=== PATIENT | female | born 1955 | race Caucasian/White ===

== ENCOUNTER 2016-06-15 12:40 | Inpatient (IN) ==
--- NOTE | 2016-06-15 13:36 | Emergency Department Note ---
Disposition Clinical Impression: Elevated troponin Pneumothorax Qualifiers: Pneumothorax type: unspecified pneumothorax Qualified Code(s): J93.9 - Pneumothorax, unspecified Disposition: Admitted As Inpatient General Adult HPI - General Chief complaint: ED Chest Pain Stated complaint: severe head ache and chest pain and back pain Time Seen by Provider: 06/15/16 13:17 Source: patient, family Limitations: no limitations Nursing Notes Reviewed: Yes Vital Signs Reviewed: Yes - History of Present Illness HPI Narrative: Mrs. Gracia, a 61yo female, presents from home by POV with CC: MAYEN and chest pain. Onset over night. CP described as constant, sharp, worse with movement, unrelieved with aspirin or post-op percocet 5/325. MAYEN described as beginning occipital and moving forward to include her entire head. Both headache and chest pain rated 10/10. Denies fever, chills, changes in vision, changes in hearing. No dyspnea, diaphoresis, palpitations, vertigo, jaw pain, arm pain. no pain from surgical sites. PMH: [place] 2013 without stent followed by [place] [facility], [place]. Fib not anticoagulated (unknown timeframe), CVA incidentally found (unknown timeframe). Pain Scale: 10 - Related Data Home Medications Medication Instructions Recorded Confirmed Aspirin 81 mg PO DAILY 06/13/16 06/15/16 Metoprolol [Lopressor] 25 mg PO BID 06/13/16 06/15/16 Previous Rx's Medication Instructions Recorded Docusate [Colace] 100 mg PO BID PRN #30 capsule 06/14/16 Omeprazole [PriLOSEC] 40 mg PO DAILY #0 06/14/16 Ondansetron HCl [Zofran] 4 mg PO Q6H PRN #30 tablet 06/14/16 OxyCODONE/APAP 5/325 [Percocet 1 each PO Q4HR PRN #30 tablet 06/14/16 5/325 MG] Allergies Allergy/AdvReac Type Severity Reaction Status Date / Time fish oil Allergy sore Verified 06/13/16 11:41 throat, headache, rash, vomiting sulfamethoxazole Allergy Anaphylaxis Verified 06/13/16 11:41 [From Bactrim] trimethoprim [From Bactrim] Allergy Anaphylaxis Verified 06/13/16 11:41 egg AdvReac See Verified 06/13/16 11:41 Comments gabapentin AdvReac Gastrointestinal Verified 06/13/16 11:41 Upset All systems ED: reviewed and negative except as stated. Constitutional: Denies: fever, chills, weakness Eyes: Reports: eye pain ENT ED: Denies: ear pain, throat pain Cardiovascular: Reports: chest pain. Denies: palpitations, dyspnea on exertion , edema, syncope Respiratory: Reports: cough. Denies: dyspnea, wheezes, hemoptysis, sputum production Gastrointestinal: Reports: nausea. Denies: abdominal pain, vomiting, diarrhea, constipation, hematemesis, melena, hematochezia Genitourinary: Denies: dysuria Musculoskeletal: Reports: back pain, neck pain Integumentary: Reports: lesions (surgical sites). Denies: rash, abrasion Neurological: Reports: headache. Denies: weakness, numbness, paresthesias, confusion, vertigo Past Medical History - Past Medical History Medical history: Reports: atrial fibrillation, cardiomyopathy, CVA, hypertension Psychiatric history: Reports: depression - Social History Smoking Status: Never smoker Smokeless Tobacco Status: No Alcohol use: Reports: none Drug use: Reports: none Physical Exam General: Patient is alert, oriented, and in no acute respiratory distress. She is grimacing holding her head. HEENT: No facial asymmetry. Head is normocephalic and atraumatic. PERRLA, EOMI. Oral mucosa dry. Trachea midline. Paraspinal soft tissues tender and taut. Cardiovascular: Heart regular rate and rhythm without clicks, rubs, gallops, or murmurs. No JVD. PMI nondisplaced. Respiratory: Symmetric chest rise with good respiratory effort. Bilateral breath sounds are clear without wheezing, crackles, or rhonchi. Mildly diminished in right mid and left base. Pain to palpation along 2nd left rib. Abdomen: Bowel sounds present normoactive x-4 quadrants. Abdomen is soft, nondistended, and nontender. Surgical sites well dressed and clean. Neuro: Cranial nerves II through XII without deficit. Sensation light touch intact. Psych: Patient's affect is appropriate for situation. - General Limitations: no limitations General appearance: alert Course Course Narrative: 2V chest x-ray to re-evaluate previous post-op pneumothorax. Will IV rehydrate. Will draw basic labs, troponin, EKG. WELLS score 1.5 giving low risk of PE. Her only (+) was recent surgery. Clinically, her chest pain is reproducible with posterior and anterior motion of left 2nd rib. Her headache is temporatily relieved with suboccipotal inhibition. Clinically suspect msk pain of 2nd left rib with tension headache, however will rule out cardiac pathology given her cardiac history and recent operation. Patient's chest x-ray is concerning for worsening pneumothorax. Additionally, she has elevation of troponin-given the pattern of her chest pain radiating to her back there is concern for AAA. We will CTA chest, abdomen, pelvis to assess both pneumothorax and for AAA. 15:[address] Vera - CT today vs CT Jun 14 2016 shows improvement in pneumothorax. Never had a lung injury - this is insuffilation from surgery. Patient also has basilar fluid. He will stop by to evaluate her. Vital Signs Temperature 98.7 F 06/15/16 12:45 Pulse Rate 84 06/15/16 12:45 Respiratory Rate 16 06/15/16 12:45 Blood Pressure 120/80 06/15/16 12:45 O2 Sat by Pulse Oximetry 97 06/15/16 12:45 Temperature 98.7 F 06/15/16 12:45 Pulse Rate 90 06/15/16 15:32 Respiratory Rate 18 06/15/16 17:07 Blood Pressure 150/88 06/15/16 17:07 O2 Sat by Pulse Oximetry 98 06/15/16 15:32 Oxygen Delivery Oxygen Delivery Room Air Medical Decision Making - Medical Records Medical records reviewed: Yes I reviewed the patient's medical records. - Lab Data Lab results reviewed: Yes I reviewed the patient's lab results. Result diagrams: 06/15/16 13:20 06/15/16 13:20 Lab Results 06/15/16 06/15/16 06/15/16 Range/Units 13:20 13:20 13:20 WBC 7.9 (4.3-11.1) K/mcL RBC 3.87 (3.82-4.97) M/mcL Hgb 11.9 (11.5-15.4) g/dL Hct 36.2 (35.3-44.9) % MCV 93.5 (83.0-100.0) fL MCH 30.7 (28.0-33.3) pg MCHC 32.9 (31.6-35.5) g/dL RDW 12.4 (11.5-14.5) % Plt Count 195 (140-400) K/mcL MPV 10.8 (9.4-12.4) fL Immature Gran % 0.4 (0-4) % Seg Neutrophils % 81.9 % Lymphocytes % 10.1 % Monocytes % 6.1 % Eosinophils % 1.1 % Basophils % 0.4 % Neutrophils # 6.5 (1.6-8.9) K/mcL Lymphocytes # 0.8 (0.6-4.6) K/mcL Monocytes # 0.5 (0.0-1.3) K/mcL Eosinophils # 0.1 (0.0-0.6) K/mcL Basophils # 0.0 (0.0-0.2) K/mcL Immature Plt Fraction 4.2 (1.1-6.1) % Sodium 138 (136-145) mEq/L Potassium 3.4 L (3.5-4.5) mEq/L Chloride 107 (98-109) mEq/L Carbon Dioxide 24 (19-29) mEq/L BUN 8 (7-20) mg/dL Creatinine 0.73 (0.57-1.11) mg/dL Est GFR ( Amer) > 60 (> 60) Est GFR (Non-Af Amer) > 60 (> 60) BUN/Creatinine Ratio 11 (6-26) Glucose 95 (70-99) mg/dL Calculated Osmolality 284 (280-300) Calcium 8.6 (8.6-10.8) mg/dL Troponin I 0.07 H* (0-0.03) ng/mL - Radiology Data Radiology results reviewed: Yes I reviewed the patient's radiology results. - EKG Data EKG #1 EKG attestation: Yes I reviewed and interpreted this EKG. EKG results narrative: EKG dated 06/15/16 at 1257 read as sinus rhythm with a rate of 82. Normal intervals. Left axis. T-wave inversion in leads 3, V1, V2, V3. Nonspecific ST -T changes. Compared to previous EKG dated 06/14/2016 at 00:45 shows no acute ischemic changes; T-wave inversion present in the same leads. Attestation Statement - Attestation Attestation: I examined this patient and my medical decision-making was reviewed with the LABORER/PA/Advanced Practice Nurse/Resident Physician. I agree with the documented findings, disposition and treatment plan as described except to the extent set forth below. Patient presents to the emergency department wanting a chest pressure. Patient states she woke up during the night with pain in her chest radiating to her back. Patient is status post Lucius fundoplication 2 days ago. She got a small pneumothorax postop required no intervention. On exam she is in no distress. She has symmetric breath sounds. Vital signs stable except for a pulse ox of 91%. Plan. The patient is a worsening pneumothorax on her chest x- ray. Troponin is elevated. We will get a CT chest to rule out dissection and to quantitate her pneumothorax. Likely admit.I
[2016-06-15] MEDS ORDERED: 0.9 % Sodium Chloride 1,000 ML IVC ONE (13:41)
[2016-06-15] MEDS ORDERED: Metoclopramide 10 MG/2 ML VIAL IVP ONE (13:42)
[2016-06-15] MEDS ORDERED: Ketorolac 30 MG/ML VIAL IVP ONE (13:42)
[2016-06-15 13:48] LABS: Basophils % 0.4 %; Eosinophils # 0.1 K/mcL (0.0-0.6); Eosinophils % 1.1 %; Hematocrit 36.2 % (35.3-44.9); Hemoglobin 11.9 g/dL (11.5-15.4); Immature Granulocytes % 0.4 % (0-4); Immature Platelets 4.2 % (1.1-6.1); Lymphocytes # 0.8 K/mcL (0.6-4.6); Lymphocytes % 10.1 %; Mean Corpuscular HGB Conc 32.9 g/dL (31.6-35.5); Mean Corpuscular Hemoglobin 30.7 pg (28.0-33.3); Mean Corpuscular Volume 93.5 fL (83.0-100.0); Mean Platelet Volume 10.8 fL (9.4-12.4); Monocytes # 0.5 K/mcL (0.0-1.3); Monocytes % 6.1 %; Neutrophils # 6.5 K/mcL (1.6-8.9); Platelet Count 195 K/mcL (140-400); Red Blood Count 3.87 M/mcL (3.82-4.97); Red Cell Distribution Width 12.4 % (11.5-14.5); Segmented Neutrophils % 81.9 %
[2016-06-15 14:18] LABS: BUN/Creatinine Ratio 11 (6-26); Blood Urea Nitrogen 8 mg/dL (7-20); Calcium 8.6 mg/dL (8.6-10.8); Carbon Dioxide 24 mEq/L (19-29); Chloride 107 mEq/L (98-109); Glucose 95 mg/dL (70-99); Osmolality,Calculated 284 (280-300); Potassium 3.4 mEq/L (3.5-4.5); Sodium 138 mEq/L (136-145); eGFR For African Americans > 60 (> 60); eGFR For Non-African Americans > 60 (> 60)
[2016-06-15] MEDS ORDERED: Naloxone 0.4 MG/ML INJ IVP PRN (16:04)
[2016-06-15] MEDS ORDERED: Ondansetron 4 MG/2 ML VIAL IVP PRN (16:04)
[2016-06-15] MEDS ORDERED: *HR* HYDROmorphone (PF) 1 MG/ML SYRINGE IVP PRN (16:13)
[2016-06-15] MEDS ORDERED: 0.9 % Sodium Chloride 1,000 ML IVC SCH (16:15)
[2016-06-15] MEDS ORDERED: Ketorolac 15 MG/ML VIAL IVP PRN (16:20)
--- NOTE | 2016-06-15 16:53 | General Surg History&Physical ---
<Tonny Barry - Last Filed: 06/15/16 17:57> Date of Encounter: 06/15/16 Time of Encounter: 16:00 Assessment and Plan (1) Status post Lucius fundoplication Current Visit: Yes Status: Acute POD# 2 s/p lucius fundoplication by Dr. Vera. Continue pain management. (2) Chest pain Current Visit: Yes Status: Acute Atypical chest pain, as there are no precipitating or extinguishing factors. Likely secondary to insuffilation s/p lucius fundopilcation on 06/13/16 Elevated troponin at 0.07, hipolito continue to trend. Hospitalist consulted to manage. Received ASA in the ED, will continue daily. No acute EKG changes. Noted to have both pneumothoraces and fluid on CT. Consider thoracentesis, if so will consult IR tomorrow. Continue pain management. Qualifiers: Chest pain type: unspecified Qualified Code(s): R07.9 - Chest pain, unspecified (3) Acute respiratory disease Current Visit: Yes Status: Acute Acute respiratory failure with hypoxia, likely secondary to insufflation s/p lucius fundoplication on 06/13/16. Family notes oxygen saturation in the 80s on presentation, currently 98% on [address] today vs CT Jun 14 2016 shows improvement in pneumothorax. Noted basilar fluid. Continue supplemental oxygen. Continue to monitor overnight Incentive spirometry. No chest tube warranted at this time, consider thoracentesis for effusions. (4) Elevated troponin Current Visit: Yes Status: Acute Likely secondary to demand ischemia secondary to acute respiratory distress vs recent surgery/lucius on 06/13/16. Initial troponin 0.07, no previous to compare. Ordered trending troponins. Consulted hospitalist for management. (5) Headache Current Visit: Yes Status: Acute Improving. Denies history of headaches. Starting IV fluids Toradol prn. Qualifiers: Headache type: tension-type Headache chronicity pattern: acute headache Intractability: not intractable Qualified Code(s): G44.209 - Tension-type headache, unspecified, not intractable (6) GERD (gastroesophageal reflux disease) Current Visit: No Status: Chronic Protonix 40mg IV daily. Qualifiers: Esophagitis presence: esophagitis presence not specified Qualified Code(s) : K21.9 - Gastro-esophageal reflux disease without esophagitis (7) DVT prophylaxis Current Visit: Yes Status: Acute Heparin 5,000 SQ BID. History of Present Illness Chief complaint: chest pain HPI: Ms. Gracia is a 61 year old female presents to the ED for chest pain, s/p lucius fundoplication on 06/13/[address] Vera. Patient states the pain began overnight, describing the discomfort as constant, sharp pain that worsens with movement and radiating through to her back. At its worst a 10/10 in severity, currently improved with pain medication and supplemental oxygen. She also notes having a headache currently, worse at the base of her skull. Denies history of headaches. Family states patient appeared short of breath and confused at home. Patient states she feels "foggy". Son notes patient to have had a saturation in the 80s on arrival. Lowest I see is 91% documented. Currently doing well on 2L. Patient admits to chills, but no documented fevers. Of note, patient had similar chest pain status post surgery on 06/13/[address] of the chest. There were concerns for a small to moderate sized left hydropneumothorax at that time. She had a f/u UGI examination which showed no evidence of a leak. The patient's chest pain had resolved; f/u chest x-ray showed a small residual apical pneumothorax. This was reviewed with Dr. Vera , that the defect was likely related to the nature of the surgery without injury to the lung. The patient tolerated liquids without nausea/vomiting/ reflux. Her vital signs were stable and she was afebrile. Past Med Surg Social Fam HX - Past Medical History Medical history: atrial fibrillation, cardiomyopathy, CVA, hypertension Psychiatric history: depression - Past Surgical History Surgical History: cholecystectomy - Social History Smoking Status: Never smoker Smokeless Tobacco Status: No Alcohol use: none Drug use: none - Family History Father Living Status: Cause of : CVA Mother Living Status: Hx Family Cardiac Disorders: Yes (heart disease) Hx Family Endocrine Disorder: Yes (DM) Medications and Allergies Aspirin 81 mg PO DAILY 06/13/16 [History] Metoprolol [Lopressor] 25 mg PO BID 06/13/16 [History] Docusate [Colace] 100 mg PO BID PRN #30 capsule 06/14/16 [Rx] Omeprazole [PriLOSEC] 40 mg PO DAILY #0 06/14/16 [Rx] Ondansetron HCl [Zofran] 4 mg PO Q6H PRN #30 tablet 06/14/16 [Rx] OxyCODONE/APAP 5/325 [Percocet 5/325 MG] 1 each PO Q4HR PRN #30 tablet 06/14/16 [Rx] Allergies fish oil Allergy (Verified 06/13/16 11:41) sore throat, headache, rash, vomiting sulfamethoxazole [From Bactrim] Allergy (Verified 06/13/16 11:41) Anaphylaxis trimethoprim [From Bactrim] Allergy (Verified 06/13/16 11:41) Anaphylaxis egg Adverse Reaction (Verified 06/13/16 11:41) See Comments headache, sore throat gabapentin Adverse Reaction (Verified 06/13/16 11:41) Gastrointestinal Upset Review of Systems All systems PM: A 10-system review of systems was performed and is negative for pertinent findings except as documented above in the HPI. - Constitutional chills, fatigue, headache(s), weakness - EENT Nose, mouth and throat: neck pain, no dysphagia - Cardiovascular chest pain, dyspnea, no palpitations, no syncope - Respiratory dyspnea on exertion - Gastrointestinal no abdominal pain, no dysphagia, no nausea, no vomiting - Genitourinary Genitourinary: no dysuria, no flank pain - Musculoskeletal back pain, neck pain - Integumentary other (incision sites) - Neurological headache(s), no memory loss General Surgery Exam Initial Vital Signs Temp Pulse Resp BP Pulse Ox 98.7 F 84 16 120/80 97 06/15/16 12:45 06/15/16 12:45 06/15/16 12:45 06/15/16 12:45 06/15/16 12:45 - General physical appearance well developed, well nourished, no distress, obese - Eyes normal ocular movement - ENT normal mucosa, atraumatic, normocephalic - Neck trachea midline - Respiratory normal respiratory effort, clear to auscultation - Cardiovascular Cardiovascular exam: Present: RRR, 15, 16 - Abdomen Abdomen general surgery: Present: bowel sounds present, soft, non tender - Integumentary Integumentary general surgery: Present: warm and dry, no abnormal pigmentation - Neurologic Present: CN 2-12 grossly intact. Absent: combative, disoriented - Psychiatric Psychiatric general surgery: Present: appropriate, oriented to person, oriented to place, oriented to time, speech is normal, memory intact Results - Labs 06/15/16 13:20 06/15/16 13:20 Abnormal lab results Potassium 3.4 mEq/L (3.5-4.5) L 06/15/16 13:20 Troponin I 0.07 ng/mL (0-0.03) H* 06/15/16 13:20 All other labs normal. <Mor Vera M - Last Filed: 06/15/16 19:20> Date of Encounter: 06/15/16 History of Present Illness HPI: Ms. Gracia is a 61 year old female Review of Systems All systems PM: A 10-system review of systems was performed and is negative for pertinent findings except as documented above in the HPI. General Surgery Exam Initial Vital Signs Temp Pulse Resp BP Pulse Ox 98.7 F 84 16 120/80 97 06/15/16 12:45 06/15/16 12:45 06/15/16 12:45 06/15/16 12:45 06/15/16 12:45 Results - Labs 06/15/16 13:20 06/15/16 13:20 Abnormal lab results Potassium 3.4 mEq/L (3.5-4.5) L 06/15/16 13:20 Troponin I 0.07 ng/mL (0-0.03) H* 06/15/16 13:20 All other labs normal. - Attending Attestation I examined this patient and my medical decision-making was reviewed with the HUMAN PROJECTILE/PA/Advanced Practice Nurse/Resident Physician. I agree with the documented findings, disposition and treatment plan as described except to the extent set forth below. I reviewed the above assessment and evaluation. I personally reviewed the patient's CT scan images and was able to compare it to the previous CT from 06/14. I appears that the pneumothorax on the left has decreased . There are bilateral pleural effusions present. Normal WBCs. Agree with NPO and supplemental O2/incentive spirometer. Hospitalist consultation for mildly elevated troponin and symptoms of chest pain (still most likely secondary to the surgery). Follow with CXR in am.
--- NOTE | 2016-06-15 18:20 | Internal Medicine Consult Note ---
Date of Encounter: 06/15/16 Time of Encounter: 18:17 Internal Medicine - CN: HPI - Data of Consult Patient: new to practice Consult date: 06/15/16 Requesting Physician: Mor Vera MD - Consult Narrative Reason for consult: Elevated troponin History of present illness: Ms. Gracia is a 61 year old female with a past medical history of hiatal hernia and GERD who underwent a recent Niesen fundoplication performed by Dr. Vera. The patient was discharged yesterday from the hospital and ealry this morning at approximately 2 AM started complaining of severe sharp chest pain mainly on the left side. On the CT scan of the chest no pulmonary emboli was found but it showed left moderate sized hydropneumothorax that apparently has improved from the prior study also trace right hydropneumothorax, some pancreatic edema versus possible pancreatitis and a left lower lobe consolidation. Patient is not complaining of any phlegm coming up. Describes the pain as pressure-like that is worse when she moves around or she breathes in , likely pleuritic. Her troponin was 0.07 but denies any diaphoresis, mild shortness of breath, the patient is not improved with aspirin or Percocet but improved with some Toradol was given at the ER. Potassium is 3.4, blood pressure is 150/88. She denies any other complaint. Review of systems: Denies any abdominal pain, no dysuria, other systems out of the 10 reviewed were negative Past Med Surg Social Fam HX - Past Medical History Medical history: atrial fibrillation (No anticoagulation), cardiomyopathy, CVA, hypertension, other (PFO, CAD, hiatal hernia, GERD, sarcoidosis, vertigo, asthma , depression, esophagitis grade C) Psychiatric history: depression - Past Surgical History Surgical History: cholecystectomy, other (Cardiac catheterization in 2010 with no stents, tubal ligation, tonsillectomy, cholecystitis, echocardiogram with an ejection fraction of 55% diastolic dysfunction and a PFO with a right to left shunt) - Social History Smoking Status: Never smoker Smokeless Tobacco Status: No Alcohol use: none Drug use: none - Family History Father Living Status: Cause of : CVA Mother Living Status: Hx Family Cardiac Disorders: Yes (heart disease) Hx Family Endocrine Disorder: Yes (DM) - Additional Family History Additional family history: Father with CVA and mother with diabetes and heart disease Internal Medicine - CN: Meds Aspirin 81 mg PO DAILY 06/13/16 [History] Metoprolol [Lopressor] 25 mg PO BID 06/13/16 [History] Docusate [Colace] 100 mg PO BID PRN #30 capsule 06/14/16 [Rx] Omeprazole [PriLOSEC] 40 mg PO DAILY #0 06/14/16 [Rx] Ondansetron HCl [Zofran] 4 mg PO Q6H PRN #30 tablet 06/14/16 [Rx] OxyCODONE/APAP 5/325 [Percocet 5/325 MG] 1 each PO Q4HR PRN #30 tablet 06/14/16 [Rx] Allergies fish oil Allergy (Verified 06/13/16 11:41) sore throat, headache, rash, vomiting sulfamethoxazole [From Bactrim] Allergy (Verified 06/13/16 11:41) Anaphylaxis trimethoprim [From Bactrim] Allergy (Verified 06/13/16 11:41) Anaphylaxis egg Adverse Reaction (Verified 06/13/16 11:41) See Comments headache, sore throat gabapentin Adverse Reaction (Verified 06/13/16 11:41) Gastrointestinal Upset Internal Medicine - CN: Exam - Constitutional Vitals: Temp Pulse Resp BP Pulse Ox 99.2 F 81 16 121/78 96 06/15/16 18:09 06/15/16 18:09 06/15/16 18:09 06/15/16 18:09 06/15/16 18:09 General appearance IM: Present: A&O X 3 - Head Head exam: Present: atraumatic, normal inspection - Expanded Head Exam Head exam expanded IM: Absent: abrasion, Washington's sign, contusion - Eye Eye exam: Present: EOMI, normal appearance. Absent: conjunctival injection, nystagmus - Neck Neck exam general surgery: Present: full ROM - Respiratory Respiratory exam: Present: decreased breath sounds (Decreased breath sounds on the right). Absent: rales, wheezes - GI/Abdominal GI/Abdominal exam IM: Present: distended. Absent: bruit, rebound, tenderness Additional comments: 5 port wounds with no signs of infection showing small ecchymoses - Rectal Rectal exam: Present: deferred - Extremities Exam Extremities exam IM: Present: full ROM. Absent: calf tenderness, cyanotic, joint swelling, pedal edema, tenderness - Expanded Lower Extremities Exam Neuro vascular tendon exam: Absent: foot drop - Neurological Exam Neurological exam: Present: CN II-XII intact, oriented X3. Absent: altered - Skin Skin exam IM: Absent: abrasion Internal Medicine - CN: Reslt - Labs CBC & Chem 7: 06/15/16 13:20 06/15/16 13:20 - Assessment and Plan (1) Elevated troponin Current Visit: Yes Status: Acute Assessment and plan: Elevated troponin likely secondary to demand ischemia EKG shows T-wave inversions in the septal anterior leads without any change May continue with aspirin, beta dale Telemetry, consider cardiology consult if worse Follow troponins Order nitroglycerin as needed, check lipid panel (2) Hydropneumothorax Current Visit: Yes Status: Acute Assessment and plan: Left more than right Followed by surgery (3) PFO (patent foramen ovale) Current Visit: Yes Status: Acute Assessment and plan: Stable (4) A-fib Current Visit: Yes Status: Acute Qualifiers: Atrial fibrillation type: paroxysmal Qualified Code(s): I48.0 - Paroxysmal atrial fibrillation (5) Status post Lucius fundoplication Current Visit: Yes Status: Acute (6) GERD (gastroesophageal reflux disease) Current Visit: No Status: Chronic Assessment and plan: Continue PPI Sequential compression devices for DVT prophylaxis. Thank you for allowing me to participate in the care of this patient. Time spent on this consult 40 minutes. Please call with any questions Qualifiers: Esophagitis presence: esophagitis presence not specified Qualified Code(s) : K21.9 - Gastro-esophageal reflux disease without esophagitis Consult Discharge Plan - Plan Referrals: Jesus Willett, SENIOR SYSTEMS DEVELOPER [Primary Care Provider] -
[2016-06-15] MEDS ORDERED: Nitroglycerin 0.4 MG TAB.SUBL SL PRN (18:26)
[2016-06-15] MEDS: *HR* Metoprolol 5 MG/5 ML VIAL IVP SCH (18:35)
[2016-06-15] MEDS: *HR* Heparin 5,000 UNIT/ML VIAL SQ SCH (21:13)
[2016-06-16] MEDS: *HR* Metoprolol 5 MG/5 ML VIAL IVP SCH ×4 (00:02→17:54)
[2016-06-16 02:20] LABS: Basophils % 0.6 %; Eosinophils # 0.2 K/mcL (0.0-0.6); Eosinophils % 2.6 %; Hematocrit 32.9 % (35.3-44.9); Hemoglobin 10.6 g/dL (11.5-15.4); Immature Granulocytes % 0.4 % (0-4); Lymphocytes % 14.3 %; Mean Corpuscular HGB Conc 32.2 g/dL (31.6-35.5); Mean Corpuscular Hemoglobin 30.8 pg (28.0-33.3); Mean Corpuscular Volume 95.6 fL (83.0-100.0); Mean Platelet Volume 11.3 fL (9.4-12.4); Monocytes # 0.4 K/mcL (0.0-1.3); Monocytes % 5.8 %; Neutrophils # 5.3 K/mcL (1.6-8.9); Platelet Count 160 K/mcL (140-400); Red Blood Count 3.44 M/mcL (3.82-4.97); Red Cell Distribution Width 12.3 % (11.5-14.5); Segmented Neutrophils % 76.3 %
[2016-06-16 02:28] LABS: BUN/Creatinine Ratio 10 (6-26); Blood Urea Nitrogen 7 mg/dL (7-20); Calcium 8.3 mg/dL (8.6-10.8); Carbon Dioxide 26 mEq/L (19-29); Chloride 110 mEq/L (98-109); Glucose 83 mg/dL (70-99); Osmolality,Calculated 289 (280-300); Potassium 3.4 mEq/L (3.5-4.5); Sodium 141 mEq/L (136-145); eGFR For African Americans > 60 (> 60); eGFR For Non-African Americans > 60 (> 60)
[2016-06-16] MEDS: Aspirin 81 MG TAB.CHEW PO SCH (09:46)
[2016-06-16] MEDS: *HR* Heparin 5,000 UNIT/ML VIAL SQ SCH ×2 (09:46→20:25)
--- NOTE | 2016-06-16 10:00 | General Surgery Progress Note ---
<OceanaAditi Pily - Last Filed: 06/16/16 10:11> Date of Encounter: 06/16/16 Time of Encounter: 09:45 - Assessment and Plan (1) Status post Lucius fundoplication Current Visit: Yes Status: Acute POD #[address] Vera Resume clear liquids today w/o carbonation IV fluids- decrease to 50ml/hour with start of clears Supportive care/pain control Increase activity as tolerated- ambulate with assistance (2) Chest pain Current Visit: Yes Status: Acute Improved today Atypical chest pain, as there are no precipitating or extinguishing factors. Likely secondary to insuffilation s/p lucius fundopilcation on 06/13/16 Troponin has trended down to 0.04 Continue asa, beta dale and statin No acute EKG changes. Noted to have pneumothoraces and fluid on CT- improved since initial CT Qualifiers: Chest pain type: unspecified Qualified Code(s): R07.9 - Chest pain, unspecified (3) Elevated troponin Current Visit: Yes Status: Acute Hospitalist consulted for recommendations Opinion was that this was related to demand ischemia from the surgery and hypoxia 0.08>0.05>0.04 Continue asa, beta dale, statin (4) Pleural effusion Current Visit: Yes Status: Acute Will continue to monitor No intervention at this time Incentive Spirometer every 1 hours while awake (5) Headache Current Visit: Yes Status: Acute Improved Toradol prn for recurrent headache Qualifiers: Headache type: tension-type Headache chronicity pattern: acute headache Intractability: not intractable Qualified Code(s): G44.209 - Tension-type headache, unspecified, not intractable (6) Hydropneumothorax Current Visit: Yes Status: Acute Improved since initial CT Continue to monitor and treat with conservative measures No intervention at this time (7) Hypokalemia Current Visit: Yes Status: Acute Replace potassium today (8) DVT prophylaxis Current Visit: Yes Status: Acute Continue heparin 5,000 units SQ twice daily for DVT prophylaxis Subjective Patient reports: feels better, still having pain (chest with deep breathing), pain is less, voiding w/o difficulty, flatus, afebrile (Tmax 99.8) Objective Vital Signs - Last 8 Hours Temp Pulse Resp BP Pulse Ox 06/16/16 07:16 98.9 F 96 14 123/77 95 06/16/16 05:31 99 140/89 06/16/16 03:36 99.8 F H 96 17 154/84 93 L Intake and Output 06/15/16 06/16/16 06/16/16 23:59 07:59 15:59 Intake Total 1000 / 1000 60 / 60 Output Total 450 / 450 Balance 1000 / 1000 -390 / -390 Intake: IV Fluids 1000 / 1000 0.9 % Sodium Chloride 1, 1000 / 1000 000 ML @ 1875 mls/hr IVC .Q32M ONE Rx#:[id number] Oral 60 / 60 Output: Urine 450 / 450 Other: Weight 106.776 kg Blood Glucose* 78 - General physical appearance well developed, well nourished, no distress - Eyes normal ocular movement - ENT dry mucosa, atraumatic, normocephalic - Neck Neck exam: trachea midline - Respiratory normal respiratory effort, clear to auscultation, other (diminished bibasilar bases; oxygen saturation 95% on 2L per nasal cannula) - Cardiovascular Cardiovascular exam: Present: RRR - Abdomen Abdomen: Present: bowel sounds present, soft, tender (minimal, expected post- operative tenderness) - Incision Incision: Present: clean and dry, intact - Neurologic CN 2-12 grossly intact - Psychiatric oriented to time, oriented to person, oriented to place, speech is normal, memory intact - Labs 06/16/16 01:15 06/16/16 01:15 Diabetes panel 06/16/16 Range/Units 01:15 Sodium 141 (136-145) mEq/L Potassium 3.4 L (3.5-4.5) mEq/L Chloride 110 H (98-109) mEq/L Carbon Dioxide 26 (19-29) mEq/L BUN 7 (7-20) mg/dL Creatinine 0.67 (0.57-1.11) mg/dL Glucose 83 (70-99) mg/dL Calcium 8.3 L (8.6-10.8) mg/dL Calcium panel 06/16/16 Range/Units 01:15 Calcium 8.3 L (8.6-10.8) mg/dL Pituitary panel 06/16/16 Range/Units 01:15 Sodium 141 (136-145) mEq/L Potassium 3.4 L (3.5-4.5) mEq/L Chloride 110 H (98-109) mEq/L Carbon Dioxide 26 (19-29) mEq/L BUN 7 (7-20) mg/dL Creatinine 0.67 (0.57-1.11) mg/dL Glucose 83 (70-99) mg/dL Calcium 8.3 L (8.6-10.8) mg/dL Adrenal panel 06/16/16 Range/Units 01:15 Sodium 141 (136-145) mEq/L Potassium 3.4 L (3.5-4.5) mEq/L Chloride 110 H (98-109) mEq/L Carbon Dioxide 26 (19-29) mEq/L BUN 7 (7-20) mg/dL Creatinine 0.67 (0.57-1.11) mg/dL Glucose 83 (70-99) mg/dL Calcium 8.3 L (8.6-10.8) mg/dL Consult Discharge Plan - Plan Referrals: Jesus Willett CNP [Primary Care Provider] - 07/18/16 1:00 pm Aditi Bobby CNP [Advanced Practice Nurse] - 06/26/16 9:30 am Soledad Louie MD [Partnered Physician] - 07/13/16 10:10 am - Attending Attestation I examined this patient and my medical decision-making was reviewed with the ROD PILER/PA/Advanced Practice Nurse/Resident Physician. I agree with the documented findings, disposition and treatment plan as described except to the extent set forth below. <Mor Vera - Last Filed: 06/16/16 17:10> Date of Encounter: 06/16/16 Objective Vital Signs - Last 8 Hours Temp Pulse Resp BP Pulse Ox 06/16/16 15:32 97.8 F 86 14 141/83 94 L 06/16/16 10:51 98.5 F 106 16 154/85 97 Intake and Output 06/16/16 06/16/16 06/16/16 07:59 15:59 23:59 Intake Total 60 / 60 1240 / 1240 Output Total 450 / 450 Balance -390 / -390 1240 / 1240 Intake: IV Fluids 1000 / 1000 0.9 % Sodium Chloride 1, 1000 / 1000 000 ML @ 75 mls/hr IVC . [id number] AZEEM Rx#: [id number] Oral 60 / 60 240 / 240 Output: Urine 450 / 450 Other: Meal NPO Blood Glucose* 78 103 - Labs 06/16/16 01:15 06/16/16 01:15 Diabetes panel 06/16/16 Range/Units 01:15 Sodium 141 (136-145) mEq/L Potassium 3.4 L (3.5-4.5) mEq/L Chloride 110 H (98-109) mEq/L Carbon Dioxide 26 (19-29) mEq/L BUN 7 (7-20) mg/dL Creatinine 0.67 (0.57-1.11) mg/dL Glucose 83 (70-99) mg/dL Calcium 8.3 L (8.6-10.8) mg/dL Calcium panel 06/16/16 Range/Units 01:15 Calcium 8.3 L (8.6-10.8) mg/dL Pituitary panel 06/16/16 Range/Units 01:15 Sodium 141 (136-145) mEq/L Potassium 3.4 L (3.5-4.5) mEq/L Chloride 110 H (98-109) mEq/L Carbon Dioxide 26 (19-29) mEq/L BUN 7 (7-20) mg/dL Creatinine 0.67 (0.57-1.11) mg/dL Glucose 83 (70-99) mg/dL Calcium 8.3 L (8.6-10.8) mg/dL Adrenal panel 06/16/16 Range/Units 01:15 Sodium 141 (136-145) mEq/L Potassium 3.4 L (3.5-4.5) mEq/L Chloride 110 H (98-109) mEq/L Carbon Dioxide 26 (19-29) mEq/L BUN 7 (7-20) mg/dL Creatinine 0.67 (0.57-1.11) mg/dL Glucose 83 (70-99) mg/dL Calcium 8.3 L (8.6-10.8) mg/dL - Attending Attestation I reviewed the above and agree with the above assessment and plan. Encourage ambulation and monitor O2 requirements while ambulating. Potential DC home tomorrow if improvement continues. I believe her pain is secondary to the surgery and the air within the chest cavity from the insufflation from that hiatal hernia repair.
[2016-06-16] MEDS ORDERED: Potassium Chloride Elixir 20 MEQ/15 ML UDC PO ONE (10:14)
[2016-06-16] MEDS ORDERED: 0.9 % Sodium Chloride 1,000 ML IVC SCH (10:15)
[2016-06-16] MEDS ORDERED: *HR* OxyCODONE/APAP 5/325 TABLET PO PRN (10:17)
[2016-06-16] MEDS ORDERED: *HR* HYDROmorphone (PF) 1 MG/ML SYRINGE IVP PRN (10:18)
[2016-06-16] MEDS: Pantoprazole 40 MG VIAL IVP SCH (10:50)
[2016-06-16] MEDS: Ipratropium/Albuterol Neb 3 ML IH SCH ×3 (11:33→21:28)
--- NOTE | 2016-06-16 16:05 | Electrocardiograph Report ---
[facility] Test Date: 2016-06-15 Pat Name: Luz Marina Gracia Department: 103 Room: 3A44 Gender: F Roll Grinder: [facility] : [id number] Requested By: Rony Mackenzie Order Number: [id number] Reading MD: Aditi Lamas Measurements Intervals [place] Rate: 82 P: 38 KS: 202 QRS: -2 QRSD: 89 T: -3 QT: 346 QTc: 384 Interpretive Statements SINUS RHYTHM MODERATE T-WAVE ABNORMALITY, CONSIDER ANTERIOR ISCHEMIA Electronically Signed On 06-16-16 16:03:21 EST by Aditi Lamas
--- NOTE | 2016-06-16 16:12 | Event Note ---
Date of Encounter: 06/16/16 Time of Encounter: 16:05 Ms. Gracia is a 61 year old female with a past medical history of hiatal hernia and GERD who underwent a recent Niesen fundoplication performed by Dr. Vera. The patient admitted for left moderate sized hydropneumothorax that apparently has improved from the prior study also trace right hydropneumothorax , some pancreatic edema versus possible pancreatitis and a left lower lobe consolidation. davina is being followed by medicine consult for f/u of chest pain. at the time of my assesment, she still has chest pain which is slighty better than yesterday. tropx3 was reviewed, has been going down, NO ischemic changes in EKG. chest pain less likely 2/2 ACS at this time and possibel 2/2 current hydropneumothorax. management of hydropneumothorax as per the primary service. given no fever or cough iwth productive sputum,no leucocytosis, rene LLL consolidation may be an atelectasis, less likely pneumonia as per clinical correlation no further cardiac interventions needed at this time. please re consult prn. thank you for consulting hospitalist service.
[2016-06-17] MEDS: *HR* Metoprolol 5 MG/5 ML VIAL IVP SCH ×3 (00:56→11:16)
[2016-06-17 03:42] LABS: Basophils % 0.5 %; Eosinophils # 0.1 K/mcL (0.0-0.6); Eosinophils % 1.7 %; Hematocrit 31.8 % (35.3-44.9); Hemoglobin 10.7 g/dL (11.5-15.4); Immature Granulocytes % 0.3 % (0-4); Lymphocytes # 0.8 K/mcL (0.6-4.6); Lymphocytes % 13.2 %; Mean Corpuscular HGB Conc 33.6 g/dL (31.6-35.5); Mean Corpuscular Hemoglobin 31.2 pg (28.0-33.3); Mean Corpuscular Volume 92.7 fL (83.0-100.0); Mean Platelet Volume 10.2 fL (9.4-12.4); Monocytes # 0.4 K/mcL (0.0-1.3); Monocytes % 6.2 %; Neutrophils # 4.7 K/mcL (1.6-8.9); Platelet Count 190 K/mcL (140-400); Red Blood Count 3.43 M/mcL (3.82-4.97); Red Cell Distribution Width 12.2 % (11.5-14.5); Segmented Neutrophils % 78.1 %
[2016-06-17] MEDS: Ipratropium/Albuterol Neb 3 ML IH SCH ×3 (03:46→15:18)
[2016-06-17 03:53] LABS: BUN/Creatinine Ratio 10 (6-26); Blood Urea Nitrogen 6 mg/dL (7-20); Calcium 8.3 mg/dL (8.6-10.8); Carbon Dioxide 24 mEq/L (19-29); Chloride 110 mEq/L (98-109); Glucose 102 mg/dL (70-99); Osmolality,Calculated 292 (280-300); Potassium 3.5 mEq/L (3.5-4.5); Sodium 142 mEq/L (136-145); eGFR For African Americans > 60 (> 60); eGFR For Non-African Americans > 60 (> 60)
[2016-06-17] MEDS: Aspirin 81 MG TAB.CHEW PO SCH (08:31)
[2016-06-17] MEDS: *HR* Heparin 5,000 UNIT/ML VIAL SQ SCH (08:31)
[2016-06-17] MEDS: Pantoprazole 40 MG VIAL IVP SCH (08:31)
[2016-06-17 11:51] VITALS: BP 151/92
--- NOTE | 2016-06-17 13:54 | Discharge Summary ---
Date of Encounter: 06/17/16 Time of Encounter: 12:30 - Discharge Diagnosis (1) Status post Lucius fundoplication Priority: Primary Status: Acute (2) Chest pain Priority: Primary Status: Acute Qualifiers: Chest pain type: unspecified Qualified Code(s): R07.9 - Chest pain, unspecified (3) Acute respiratory disease Priority: Secondary Status: Acute (4) Elevated troponin Priority: Secondary Status: Acute (5) Headache Priority: Secondary Status: Acute Qualifiers: Headache type: tension-type Headache chronicity pattern: acute headache Intractability: not intractable Qualified Code(s): G44.209 - Tension-type headache, unspecified, not intractable (6) GERD (gastroesophageal reflux disease) Priority: Secondary Status: Chronic Qualifiers: Esophagitis presence: esophagitis presence not specified Qualified Code(s) : K21.9 - Gastro-esophageal reflux disease without esophagitis (7) DVT prophylaxis Priority: Secondary Status: Acute - Discharge Medications Home Medications: Aspirin 81 mg PO DAILY 06/13/16 [History] Metoprolol [Lopressor] 25 mg PO BID 06/13/16 [History] Docusate [Colace] 100 mg PO BID PRN #30 capsule 06/14/16 [Rx] Omeprazole [PriLOSEC] 40 mg PO DAILY #0 06/14/16 [Rx] Ondansetron HCl [Zofran] 4 mg PO Q6H PRN #30 tablet 06/14/16 [Rx] OxyCODONE/APAP 5/325 [Percocet 5/325 MG] 1 each PO Q4HR PRN #30 tablet 06/14/16 [Rx] Allergies/Adverse Reactions: Allergies fish oil Allergy (Verified 06/13/16 11:41) sore throat, headache, rash, vomiting sulfamethoxazole [From Bactrim] Allergy (Verified 06/13/16 11:41) Anaphylaxis trimethoprim [From Bactrim] Allergy (Verified 06/13/16 11:41) Anaphylaxis egg Adverse Reaction (Verified 06/13/16 11:41) See Comments headache, sore throat gabapentin Adverse Reaction (Verified 06/13/16 11:41) Gastrointestinal Upset General Surgery Exam Initial Vital Signs Temp Pulse Resp BP Pulse Ox 98.7 F 84 16 120/80 97 06/15/16 12:45 06/15/16 12:45 06/15/16 12:45 06/15/16 12:45 06/15/16 12:45 - General physical appearance well developed, well nourished, no distress - Eyes normal ocular movement - ENT normal mucosa, no congestion - Neck trachea midline - Respiratory clear to auscultation, other (poor inspiratory effort) - Cardiovascular Cardiovascular exam: Present: RRR, 15, 16 - Abdomen Abdomen general surgery: Present: bowel sounds present, soft, non tender - Incision Incision: Present: clean and dry, intact - Integumentary Integumentary general surgery: Present: warm and dry - Neurologic Present: CN 2-12 grossly intact, normal coordination - Musculoskeletal Present: normal gait, normal posture - Psychiatric Psychiatric general surgery: Present: appropriate, oriented to person, oriented to place, oriented to time, speech is normal, memory intact Date of admission: 06/15/16 16:30 Primary care physician: Jesus Willett CNP Consults: Medicine service consulted to elevated troponins. Discharging clinician: Froy Saleh Anticipated date of discharge: 06/17/16 - Patient Status Disposition: Home, Self-Care Condition: Good Functional capacity at discharge: independent ambulation Overall status at discharge: patient is progressing back to baseline - Discharge Instructions Follow Up With: Jesus Willett CNP [Primary Care Provider] - 07/18/16 1:00 pm Aditi Bobby CNP [Advanced Practice Nurse] - 06/26/16 9:30 am Soledad Louie MD [Partnered Physician] - 07/13/16 10:10 am - Diet and Activity Activity: increase activity as tolerated Diet: other (resume specialized diet plan for lucius fundoplication.) - Hospital Course Hospital course: Ms. Gracia is a 61 year old female that presented to the ED for chest pain, s/p lucius fundoplication on 06/13/[address] Vera. Patient had similar chest pain , s/p surgery on 06/13/[address] of the chest. There were concerns for a small to moderate sized left hydropneumothorax at that time. She had a f/u UGI examination which showed no evidence of a leak. The patient's chest pain had resolved; f/u chest x-ray showed a small residual apical pneumothorax. This was reviewed with Dr. Vera, that the defect was likely related to the nature of the surgery without injury to the lung. The patient tolerated liquids without nausea/vomiting/reflux. Her vital signs were stable and she was afebrile. She was discharged home, only to return the next day for midsternal chest pain, radiating through to her back. Family had stated patient appeared short of breath and confused at home. Son noted patient to have had a saturation in the 80s on arrival. Patient was found to have an elevated troponin in the ED, likely related to demand ischemia. Chest pain likely secondary to surgery and insuffilation from the hiatal hernia repair. This troponin was monitored by the hospitalist and noted to trend down from 0.07 to 0.04. Patient was observed overnight and given breathing treatments, she stated the the chest pain improved to a 2/10 and she was breathing more easily. Patient continues to have poor inspiration, recommended to continue using incentive spirometry. Repeat CXR showed improvement of pneumothorax. Patient is to continue post-lucius diet plan and keep her originally scheduled follow up with Dr. Vera at the end of the month. - Time Spent with Patient Total time spent providing and/or coordinating discharge services: Less than 30 minutes Labs on day of discharge: Labs from last 24 hours 06/17/16 06/17/16 06/16/16 03:27 03:27 18:00 WBC 6.0 RBC 3.43 L Hgb 10.7 L Hct 31.8 L MCV 92.7 MCH 31.2 MCHC 33.6 RDW 12.2 Plt Count 190 MPV 10.2 Immature Gran % 0.3 Seg Neutrophils % 78.1 Lymphocytes % 13.2 Monocytes % 6.2 Eosinophils % 1.7 Basophils % 0.5 Neutrophils # 4.7 Lymphocytes # 0.8 Monocytes # 0.4 Eosinophils # 0.1 Basophils # 0.0 Sodium 142 Potassium 3.5 Chloride 110 H Carbon Dioxide 24 BUN 6 L Creatinine 0.61 Est GFR ( Amer) > 60 Est GFR (Non-Af Amer) > 60 BUN/Creatinine Ratio 10 Glucose 102 H POC Glucose 94 H Calculated Osmolality 292 Calcium 8.3 L - Impressions ITS Impressions Chest X-Ray 06/16/16 10:18 IMPRESSION: 1. Stable small left apical pneumothorax. 2. Stable small bilateral pleural effusions with overlying atelectasis. 3. Subcutaneous air within the left chest, not significantly changed. D/ / Jay Peters MD / Jay Peters MD Interpreting Provider: Jay Peters MD
== END 2016-06-17 16:15 | disposition home or self-care (01) | DRG 199 ==
LOC: 3ANU 12:40 → EMEROO 12:40 → 3ANU 17:42
PROVIDERS: ADMIT Surgery; ATTEND Surgery

== ENCOUNTER 2021-09-26 15:57 | Observation (INO) ==
[2021-09-26 16:48] LABS: Basophils # 0.1 K/mcL (0.0-0.2); Basophils % 0.3 %; Eosinophils # 0.1 K/mcL (0.0-0.6); Eosinophils % 0.5 %; Hemoglobin 14.4 g/dL (11.5-15.4); Immature Granulocytes % 0.5 % (0-4); Lymphocytes # 1.9 K/mcL (0.6-4.6); Lymphocytes % 12.5 %; Mean Corpuscular HGB Conc 34.3 g/dL (31.6-35.5); Mean Corpuscular Hemoglobin 31.2 pg (28.0-33.3); Mean Corpuscular Volume 91.1 fL (83.0-100.0); Mean Platelet Volume 10.2 fL (9.4-12.4); Monocytes # 0.8 K/mcL (0.0-1.3); Monocytes % 5.2 %; Neutrophils # 12.1 K/mcL (1.6-8.9); Platelet Count 317 K/mcL (140-400); Red Blood Count 4.61 M/mcL (3.82-4.97); Red Cell Distribution Width 12.2 % (11.5-14.5); White Blood Count 14.9 K/mcL (4.3-11.1)
[2021-09-26 17:08] LABS: Alanine Aminotransferase 15 Units/L (7-52); Albumin 4.1 g/dL (3.5-5.7); Albumin/Globulin Ratio 1.1 (1.1-2.2); Alkaline Phosphatase 105 Units/L (34-104); Aspartate Amino Transferase 15 Units/L (13-39); BUN/Creatinine Ratio 9 (6-26); Bilirubin,Direct 0.2 mg/dL (0.0-0.2); Bilirubin,Indirect 1.3 mg/dL (0.0-1.0); Bilirubin,Total 1.5 mg/dL (0.3-1.0); Blood Urea Nitrogen 8 mg/dL (8-23); Calcium 9.3 mg/dL (8.6-10.3); Carbon Dioxide 31 mEq/L (23-29); Chloride 98 mEq/L (98-107); Globulin 3.9 g/dL (2.4-3.5); Glucose 123 mg/dL (70-105); Lipase 13 Units/L (11-82); Osmolality,Calculated 284 (280-300); Potassium 2.6 mEq/L (3.5-5.1); Sodium 137 mEq/L (136-145); eGFR For African Americans > 60 (> 60); eGFR For Non-African Americans > 60 (> 60)
[2021-09-26] MEDS ORDERED: Isovue-370 500 ML BOTTLE IVP ONE (18:39)
[2021-09-26] MEDS ORDERED: Ondansetron 4 MG/2 ML VIAL IVP ONE (18:53)
[2021-09-26] MEDS ORDERED: 0.9 % Sodium Chloride 1,000 ML IV ONE ×2 (18:53→23:15)
[2021-09-26] MEDS ORDERED: *HR* FentaNYL (PF) 100 MCG/2 ML VIAL IVP ONE (18:53)
[2021-09-26 19:18] LABS: Magnesium 2.1 mg/dL (1.6-2.6)
[2021-09-26 19:23] LABS: Bilirubin,Urine Negative (Negative); Blood,Urine Trace (Negative); Clarity,Urine Clear (Clear); Color,Urine Yellow (Yellow); Glucose,Urine (UA) Normal (Normal); Hyaline Casts,Urine Few per lpf (None Seen); Ketones,Urine Trace mg/dL (Negative); Leukocyte Esterase,Urine Small (Negative); Mucus,Urine Many per lpf (None-Few); Nitrite,Urine Negative (Negative); Protein,Urine 70 mg/dL (Neg-Trace); RBC,Urine 0-3 per hpf (0-3); Specific Gravity,Urine > 1.030 (1.010-1.025); Squamous Epithelial Cell,Urine Few per hpf (None-Few)
[2021-09-26] MEDS ORDERED: Piperacillin/Tazobactam 3.375 GM in 0.9 % Sodium Chloride Mini Bag 100 ML IVP ONE (21:16)
[2021-09-26] MEDS ORDERED: Naloxone 0.4 MG/ML INJ IVP PRN (23:16)
[2021-09-26] MEDS ORDERED: Melatonin 3 MG TABLET PO PRN (23:16)
[2021-09-26] MEDS ORDERED: Ondansetron 4 MG/2 ML VIAL IVP PRN (23:16)
[2021-09-26] MEDS: Pantoprazole 40 MG in 0.9 % Sodium Chloride Mini Bag 100 ML IVC SCH (23:30)
[2021-09-27 05:27] LABS: Basophils # 0.1 K/mcL (0.0-0.2); Basophils % 0.4 %; Eosinophils % 0.3 %; Hematocrit 36.5 % (35.3-44.9); Immature Granulocytes % 0.6 % (0-4); Lymphocytes # 1.3 K/mcL (0.6-4.6); Lymphocytes % 10.8 %; Mean Corpuscular Hemoglobin 31.8 pg (28.0-33.3); Mean Corpuscular Volume 93.6 fL (83.0-100.0); Mean Platelet Volume 10.8 fL (9.4-12.4); Monocytes # 0.6 K/mcL (0.0-1.3); Monocytes % 5.4 %; Neutrophils # 9.6 K/mcL (1.6-8.9); Platelet Count 226 K/mcL (140-400); Red Cell Distribution Width 12.2 % (11.5-14.5); Segmented Neutrophils % 82.5 %; White Blood Count 11.6 K/mcL (4.3-11.1)
[2021-09-27 05:28] LABS: Hemoglobin 12.4 g/dL (11.5-15.4)
[2021-09-27] MEDS: Piperacillin/Tazobactam 3.375 GM in 0.9 % Sodium Chloride Mini Bag 100 ML IVPB SCH ×3 (05:33→20:49)
[2021-09-27] MEDS: 0.9 % Sodium Chloride 1,000 ML IVC SCH ×3 (05:34→20:50)
[2021-09-27] MEDS ORDERED: Lidocaine -MPF 2% 5 ML VIAL ONE (14:09)
[2021-09-27] MEDS ORDERED: *HR* Labetalol 20 MG/4 ML SYRINGE IVP ONE (14:16)
[2021-09-27 14:47] LABS: Alanine Aminotransferase 134 Units/L (7-52); Albumin 3.2 g/dL (3.5-5.7); Albumin/Globulin Ratio 1.1 (1.1-2.2); Alkaline Phosphatase 134 Units/L (34-104); Aspartate Amino Transferase 128 Units/L (13-39); BUN/Creatinine Ratio 8 (6-26); Bilirubin,Total 1.7 mg/dL (0.3-1.0); Blood Urea Nitrogen 5 mg/dL (8-23); Calcium 8.3 mg/dL (8.6-10.3); Carbon Dioxide 28 mEq/L (23-29); Chloride 104 mEq/L (98-107); Globulin 2.8 g/dL (2.4-3.5); Glucose 91 mg/dL (70-105); Osmolality,Calculated 281 (280-300); Phosphorous 1.9 mg/dL (2.7-4.5); Potassium 3.5 mEq/L (3.5-5.1); Sodium 137 mEq/L (136-145); eGFR For African Americans > 60 (> 60); eGFR For Non-African Americans > 60 (> 60)
[2021-09-27] MEDS: Pantoprazole 40 MG in 0.9 % Sodium Chloride Mini Bag 100 ML IVC SCH ×4 (15:16→21:03)
[2021-09-28] MEDS: Pantoprazole 40 MG in 0.9 % Sodium Chloride Mini Bag 100 ML IVC SCH ×3 (02:53→15:19)
[2021-09-28] MEDS: Piperacillin/Tazobactam 3.375 GM in 0.9 % Sodium Chloride Mini Bag 100 ML IVPB SCH ×2 (05:04→15:20)
[2021-09-28] MEDS: 0.9 % Sodium Chloride 1,000 ML IVC SCH (05:07)
[2021-09-28 07:00] LABS: Basophils % 0.2 %; Eosinophils # 0.1 K/mcL (0.0-0.6); Eosinophils % 0.9 %; Hematocrit 32.8 % (35.3-44.9); Immature Granulocytes % 0.3 % (0-4); Lymphocytes % 11.7 %; Mean Corpuscular HGB Conc 33.5 g/dL (31.6-35.5); Mean Corpuscular Volume 95.3 fL (83.0-100.0); Mean Platelet Volume 10.8 fL (9.4-12.4); Monocytes # 0.5 K/mcL (0.0-1.3); Monocytes % 6.1 %; Neutrophils # 6.9 K/mcL (1.6-8.9); Platelet Count 205 K/mcL (140-400); Red Blood Count 3.44 M/mcL (3.82-4.97); Red Cell Distribution Width 12.4 % (11.5-14.5); Segmented Neutrophils % 80.8 %; White Blood Count 8.6 K/mcL (4.3-11.1)
[2021-09-28 07:39] LABS: Alanine Aminotransferase 94 Units/L (7-52); Albumin 2.9 g/dL (3.5-5.7); Albumin/Globulin Ratio 1.2 (1.1-2.2); Alkaline Phosphatase 116 Units/L (34-104); Aspartate Amino Transferase 57 Units/L (13-39); BUN/Creatinine Ratio 7 (6-26); Bilirubin,Total 1.3 mg/dL (0.3-1.0); Blood Urea Nitrogen 4 mg/dL (8-23); Calcium 7.9 mg/dL (8.6-10.3); Carbon Dioxide 27 mEq/L (23-29); Chloride 106 mEq/L (98-107); Globulin 2.5 g/dL (2.4-3.5); Glucose 90 mg/dL (70-105); Magnesium 1.9 mg/dL (1.6-2.6); Osmolality,Calculated 282 (280-300); Phosphorous 2.2 mg/dL (2.7-4.5); Potassium 3.2 mEq/L (3.5-5.1); Sodium 138 mEq/L (136-145); Total Protein 5.4 g/dL (6.4-8.9); eGFR For African Americans > 60 (> 60); eGFR For Non-African Americans > 60 (> 60)
[2021-09-28] MEDS ORDERED: Potassium Phosphate 44 MEQ in 0.9 % Sodium Chloride 250 ML IVPB ONE (08:16)
[2021-09-28 16:12] VITALS: BP 122/80; PULSE 93; TEMP 99.3; O2SAT 94
== END 2021-09-28 18:42 | disposition home or self-care (01) ==
LOC: EMEROOARM 15:57 → 3ANU 15:57 → SUATTDRO 22:00 → 3ANU 22:49
PROVIDERS: ADMIT Family Medicine; ATTEND Family Medicine
PROC: ENDOEBX (2021-09-27 13:45)